=== PATIENT | male | born 1930 | race Caucasian/White ===

== ENCOUNTER → 2017-07-03 | Outpatient (CLI) | payer MEDICARE, OTHER ==
[~2017-07-03] MED LIST: ASPIRIN EC81 MG PO; BUMETANIDE0.5 MG PO; LIPITOR40 MG PO; NITROSTAT0.4 MG SL; NORVASC2.5 MG PO; TESSALON PERLE100 MG PO; ULTRAM50 MG PO
== END | disposition disaster alternative care site (69) ==
LOC: GRAD 08:00
DX: I65.23 Occlusion and stenosis of bilateral carotid arteries (principal); I70.0 Atherosclerosis of aorta
CPT/HCPCS: Q9967